=== PATIENT | female | born 1960 | race Caucasian/White ===

== ENCOUNTER 2017-11-28 08:48 | Day surgery (SDC) | END 2017-11-28 12:21 | disposition home or self-care (01) ==

== ENCOUNTER 2019-05-13 12:17 | Emergency (ER) | payer OTHER ==
[~2019-05-13] VITALS: Ht 144.8 cm; Wt 77.1 kg
[~2019-05-13 12:17] MED LIST: FENO160T13 PO; LISI10TA2 PO; OXYB5TAB PO
[2019-05-13 12:23] VITALS: Ht 144.8 cm; Wt 77.1 kg
[2019-05-13] MEDS ORDERED: ONDANSETRON 4 MG INJ IV STA (12:23)
[2019-05-13] MEDS ORDERED: SOD CHLORIDE 0.9% 1,000 ML IV STA (12:23)
[2019-05-13] MEDS ORDERED: IPRATROPIUM (NEB) 0.5 MG/2.5 ML AMP NEB STA (13:13)
[2019-05-13] MEDS ORDERED: ALBUTEROL 0.083% (NEB) 2.5 MG/3 ML AMP NEB STA (13:13)
[2019-05-13] MEDS ORDERED: KETOROLAC 30 MG INJ IV STA (13:13)
[2019-05-13] MEDS ORDERED: OMEG-135 PO (13:25)
[2019-05-13] MEDS ORDERED: BENZONATATE 100 MG CAP PO ONE (13:30)
--- NOTE | 2019-05-13 14:06 | ERD ---
ER Documentation Chief Complaint Chief Complaint 3d complaint of: fever, vomiting, dry cough HPI This is a very pleasant 59-year-old female with a past medical history of high cholesterol that presents to the emergency department complaining of 3 days of tactile fever shaking chills. She has had a cough. She indicated the cough s tarted as a dry cough and is now progressive with greenish sputum. She did have 2 episodes of nonbloody nonbilious emesis that occurred after coughing. Her immunizations are up-to-date. She denies any chest pressure but does complain of a chest discomfort while coughing. She denies any shortness of breath at rest or exertion. She denies any swelling of her lower extremities. She had no sick contacts. She denies any prolonged immobilization. She denies any abdominal pain or diarrhea. She stated her fever at home was 100.6. She took Motrin as an antipyretic at 8 AM 6 hours prior to arrival. ROS All systems reviewed and are negative except as per history of present illness. Medications Home Meds Active Scripts Azithromycin* (Zithromax*) 250 Mg Tablet, 250 MG PO .ZPACK DIRECTED, #6 TAB TAKE 500 MG (2 TABS) THE FIRST DAY THEN 250 MG (1 TAB) DAYS 2-5 Prov:GARTH RUBIN MD 05/13/19 Prednisone* (Prednisone*) 20 Mg Tab, 60 MG PO DAILY for 5 Days, TAB Prov:GARTH RUBIN MD 05/13/19 Albuterol Sulfate* (Proair HFA*) 8.5 Gm Hfa.aer.ad, 2 PUFF INH Q6H PRN for WHEEZING AND SOB, #1 INHALER Prov:GARTH RUBIN MD 05/13/19 Reported Medications [place]-3 Fatty Acids/Fish Oil (Fish Oil 1,000 mg Capsule) 1 Each Capsule, 1 EACH PO BID, CAP 05/13/19 Discontinued Reported Medications Oxybutynin Chloride (Oxybutynin Chloride ER) 5 Mg Tab.er.24, 5 MG PO DAILY, TAB 11/28/17 Lisinopril* (Lisinopril*) 10 Mg Tablet, 10 MG PO DAILY, #30 TAB 11/28/17 Fenofibrate, Micronized* (Fenofibrate*) 160 Mg Tablet, 160 MG PO DAILY, #30 11/28/17 Allergies Allergies: Coded Allergies: gemfibrozil (Verified Allergy, Severe, 05/13/19) PMhx/Soc History of Surgery: Yes (CHOLECYSTECTOMY, LEFT BREAST LUMPECTOMY) Anesthesia Reaction: No Hx Neurological Disorder: No Hx Respiratory Disorders: Yes (PNA, BRONCHITIS) Hx Cardiac Disorders: Yes (HTN,HLP) Hx Psychiatric Problems: Yes (ANXIETY, DEPRESSION) Hx Miscellaneous Medical Probl: Yes (SUBEPIDERMAL CYST) Hx Alcohol Use: No Hx Substance Use: No Hx Tobacco Use: No Smoking Status: Never smoker Physical Exam Vitals Vital Signs Date Temp Pulse Resp B/P (MAP) Pulse Ox O2 O2 Flow FiO2 Time Delivery Rate 05/13/19 99.6 106 25 112/60 95 Room Air 17:13 (77) 05/13/19 99.6 99 25 119/73 100 Room Air 15:00 (88) 05/13/19 101 20 96 21 13:46 05/13/19 100.2 118 22 161/82 95 12:23 (108) Physical Exam Constitutional:Well-developed. Well-nourished. HEENT:Normocephalic. Atraumatic.Pupils were equal round reactive to light. Dry mucous membranes.No tonsillar exudates. Neck: No nuchal rigidity. No lymphadenopathy. No posterior cervical spine tenderness or step-offs. Respiratory: Not using accessory muscles of respiration.Lungs were clear to auscultation bilaterally. No rhonchi. No rales. Wheezing heard bilaterally however more prominent on the right lung base. Cardiovascular: Regular rate regular rhythm.No murmurs. No rubs were appreciated.S1, S2 normal. Distal pulses are palpable 2+ bilaterally. GI: Abdomen was soft. Nontender. Non Distended. No pulsatile abdominal masses or bruits. No rebound. No guarding. Bowel sounds were present and normal. Muscle skeletal: Full range of motion of both the upper and lower extremities bilaterally.Normal muscle tone.No assymetrical calf tenderness or swelling. Skin: No petechia, no purpura. No lesions on the palms or the soles of the feet. No maculopapular rash. NEURO: Patient was alert, awake, orientated x3.No facial droop. Gait observed and normal with no ataxia.Speech had regular rate and rhythm. No focal neurological deficits. Result Diagram: 05/13/19 1240 05/13/19 1240 Results 24 hrs Laboratory Tests Test 05/13/19 12:40 05/13/19 12:43 White Blood Count 7.1 10^3/ul Red Blood Count 5.11 10^6/ul Hemoglobin 14.8 g/dl Hematocrit 44.4 % Mean Corpuscular Volume 86.9 fl Mean Corpuscular Hemoglobin 29.0 pg Mean Corpuscular Hemoglobin Concent 33.3 g/dl Red Cell Distribution Width 13.1 % Platelet Count 142 10^3/UL Mean Platelet Volume 11.6 fl Immature Granulocytes % 0.700 % Neutrophils % % Segmented Neutrophils % (Manual) 61 % Band Neutrophils % (Manual) 17 % Lymphocytes % % Lymphocytes % (Manual) 12 % Reactive Lymphocytes % (Manual) 2 % Monocytes % % Monocytes % (Manual) 7 % Eosinophils % % Eosinophils % (Manual) 1 % Basophils % % Nucleated Red Blood Cells % 0.0 /100WBC Immature Granulocytes # 0.050 10^3/ul Neutrophils # 10^3/ul Neutrophils # (Manual) 4.4 10^3/ul Band Neutrophils # 1.2 10^3/ul Lymphocytes (Manual) 0.8 10^3/ul Lymphocytes # 10^3/ul Reactive Lymphocytes # 0.1 10^3/ul Monocytes # 10^3/ul Monocytes # (Manual) 0.4 10^3/ul Eosinophils # 10^3/ul Basophils # 10^3/ul Nucleated Red Blood Cells # 10^3/ul Platelet Estimate NORMAL Poikilocytosis 1+ Anisocytosis 1+ Microcytosis 1+ Prothrombin Time 12.9 Sec Prothrombin Time Ratio 1.0 INR International Normalized Ratio 0.96 Activated Partial Thromboplast Time 30.3 Sec D-Dimer 2269.22 ng/ml D-Dimer Comment Urine Color YELLOW Urine Clarity CLEAR Urine pH 6.0 Urine Specific [place] 1.009 Urine Ketones NEGATIVE mg/dL Urine Nitrite NEGATIVE mg/dL Urine Bilirubin NEGATIVE mg/dL Urine Urobilinogen NEGATIVE mg/dL Urine Leukocyte Esterase NEGATIVE Colin/ul Urine Hemoglobin NEGATIVE mg/dL Urine Glucose NEGATIVE mg/dL Urine Total Protein NEGATIVE mg/dl Sodium Level 143 mmol/L Potassium Level 3.5 mmol/L Chloride Level 105 mmol/L Carbon Dioxide Level 27 mmol/L Anion Gap 11 Blood Urea Nitrogen 11 mg/dl Creatinine 0.79 mg/dl Est Glomerular Filtrat Rate mL/min > 60 mL/min Glucose Level 118 mg/dl Calcium Level 9.3 mg/dl Total Bilirubin 1.1 mg/dl Direct Bilirubin 0.00 mg/dl Indirect Bilirubin 1.1 mg/dl Aspartate Amino Transf (AST/SGOT) 54 IU/L Alanine Aminotransferase (ALT/SGPT) 43 IU/L Alkaline Phosphatase 109 IU/L Troponin I < 0.012 ng/ml B-Type Natriuretic Peptide 199 PG/ML Total Protein 8.5 g/dl Albumin 4.4 g/dl Globulin 4.10 g/dl Albumin/Globulin Ratio 1.07 Amylase Level 77 U/L Lipase 56 U/L POC Venous Lactate 1.3 mmol/L Current Medications Medications Dose Sig/Monae Start Time Status Last (Trade) Ordered Route PRN Stop Time Admin Dose Reason Admin Sodium 1,000 ml @ Q1H STAT 05/13/19 DC 05/13/19 Chloride 1,000 mls/hr IV 12:23 12:43 05/13/19 13:22 Ondansetron 4 mg ONCE STAT 05/13/19 DC 05/13/19 HCl (Zofran IV 12:23 12:44 Inj) 05/13/19 12:25 Ketorolac 30 mg ONCE STAT 05/13/19 DC 05/13/19 Tromethamine IV 13:13 13:47 (Toradol) 05/13/19 13:21 Albuterol 5 mg ONCE STAT 05/13/19 DC 05/13/19 (Proventil NEB 13:13 13:44 0.083% (Neb)) 05/13/19 13:21 Ipratropium 0.5 mg ONCE STAT 05/13/19 DC 05/13/19 [place] NEB 13:13 13:44 (Atrovent 05/13/19 13:21 0.02% (Neb)) Benzonatate 100 mg ONCE ONCE 05/13/19 DC 05/13/19 (Tessalon) PO 13:30 13:47 05/13/19 13:31 Azithromycin 250 ml @ ONCE STAT 05/13/19 DC 05/13/19 250 mls/hr IV 14:50 16:16 05/13/19 15:49 Ceftriaxone 50 ml @ ONCE STAT 05/13/19 DC 05/13/19 Sodium 100 mls/hr IVPB 14:50 15:23 05/13/19 15:19 IV Flush 10 ml STK-MED 05/13/19 DC 05/13/19 (NS 10 ml) ONCE .ROUTE 15:36 16:15 05/13/19 15:37 Sodium 100 ml @ ud STK-MED 05/13/19 DC 05/13/19 Chloride ONCE .ROUTE 15:36 16:14 05/13/19 15:37 Iohexol 100 ml @ ud STK-MED 05/13/19 DC 05/13/19 ONCE .ROUTE 15:36 16:14 05/13/19 15:37 650 mg ONCE ONCE 05/13/19 DC 05/13/19 Acetaminophen PO 16:30 16:36 (Tylenol 05/13/19 16:33 Tab) Prednisone 60 mg ONCE ONCE 05/13/19 DC 05/13/19 (Prednisone) PO 17:30 17:11 05/13/19 17:31 Procedures/MDM The patient presented to the emergency department complaining of a chest discomfort and cough. My clinical evaluation and workup was to distinguish minor causes of chest pain from acute life threatening cardiopulmonary causes such as myocardial infarction, pulmonary embolism, aortic dissection, esophageal rupture, cardiac tamponade, The patient was placed on a diagnostic cardiac sonographer, continuous pulse oximetry and IV access established by nursing staff. The patient did have a low-grade fever and POC lactate was normal with no evidence of sepsis. The patient received IV Toradol. She was also given antitussives which included Tessalon Perles. I obtained a 12-lead EKG tracing to rule out for atypical myocardial infarction. 12 Lead EKG tracing ordered and reviewed by myself showed: Normal sinus rhythm of 91 bpm and no arrhythmia. TX interval normal. QRS duration normal. No ST segment elevation No ST segment depression. No changes consistent with acute ischemia. The patients chest pain was reproduced by palpation and horizontal flexion of the arms. It was my clinical impression that the pain was a result of inflammation of the skin and subcutaneous structures of the chest wall versus myocardial ischemia. I felt the patient had low-risk chest pain and could therefore be safely discharged with close follow-up and he also felt her symptoms were exacerbated by her productive cough likely result of acute bronchitis given that the chest radiograph showed no evidence of pneumonia as there was bilateral perihilar and lower lobe increased interstitial changes seen on the CXR but no infiltrates. The patient was hypoxic. She was not in severe respiratory distress. However I did feel the patient was a low pretest probability according to the Wells criteria for pulmonary embolism. Therefore obtained a d-dimer and this was elevated. A CT scan of the patient's chest showed no evidence of a pulmonary embolism. Observation Note: Time: 4 hours Family Hx: No Hypertension Evaluation: Multiple exams showed improving symptoms and no evidence of worsening of her symptoms. The nebulizer treatments and steroids had significa ntly improved the patient's symptoms and she felt comfortable being discharged home. The patient was discharged home in fair condition. They were instructed to return to the emergency department at any time if there was any worsening of their condition. The patient stated they would follow up with their PCP in the next 24-48 hours to initiate a suitable medication regimen under the care of their PCP as well as to allow their PCP to monitor any drug reactions. The patient was discharged home with prescriptions after they gave informed consent to the new medication. They were also fully informed by myself on the adverse effects and adverse drug interactions in order to provide adequate safeguards to prevent possible adverse reactions to medications. Departure Diagnosis: Primary Impression: Bronchitis Condition: Fair GARTH RUBIN MD May 13, 2019 14:06
[2019-05-13] MEDS ORDERED: AZITHROMYCIN 500MG/NS (PMX) 250 ML IV STA (14:50)
[2019-05-13] MEDS ORDERED: CEFTRIAXONE 1 GM/50 ML (PMX) 50 ML IVPB STA (14:50)
[2019-05-13] MEDS ORDERED: IOHEXOL 100 ML ONE (15:36)
[2019-05-13] MEDS ORDERED: SOD CHLORIDE 0.9% 100 ML ONE (15:36)
[2019-05-13] MEDS ORDERED: ACETAMINOPHEN 325 MG TAB PO ONE (16:30)
[2019-05-13] MEDS ORDERED: predniSONE 20 MG TAB PO ONE (17:30)
[2019-05-13] MEDS ORDERED: PRED20TA PO (17:41)
[2019-05-13] MEDS ORDERED: AZIT250T PO (17:41)
[2019-05-13] MEDS ORDERED: ALBU8.5H8 INH (17:41)
[2019-05-13 18:32] VITALS: BP 120/62; PULSE 100; RESP 25
== END 2019-05-13 18:33 | disposition home or self-care (01) ==
LOC: E/R 12:17
DX: J40 Bronchitis, not specified as acute or chronic (principal); I10 Essential (primary) hypertension; R07.89 Other chest pain; R50.9 Fever, unspecified
CPT/HCPCS: 71045; 71275; 80053; 81003; 82150; 83605; 83690; 83880; 84484; 85025; 85378; 85610; 85730; 87040; 87086; 94664; 96374; 96375; J0456; J0696; J1885; J2405; J7030; J7512; Q9967; Z7502; Z7610